=== PATIENT | female | born 1965 | race African-American/Black ===

== ENCOUNTER 2017-07-19 21:37 | Emergency (ER) | payer BC, MEDICARE ==
[2017-07-19 22:15] LABS: #Basophils 0.1 thou/uL (0.0-0.2); #Eosinphils 0.3 thou/uL (0.0-0.7); #Lymphocytes 1.6 thou/uL (1.20-3.40); #Monocytes 0.5 thou/uL (0.11-0.59); #Neutrophils 2.9 thou/uL (1.40-6.50); %Basophils 1.8 % (0.0-1.0); %Lymphocytes 29.9 % (21.0-51.0); %Monocytes 9.1 % (0.0-10.0); Hematocrit 38.9 % (36.0-47.0); Mean Platelet Volume 9.4 fL (7.4-10.4); Red Blood Cell (RBC) Count 4.33 mill/uL (4.20-5.40); White Blood Cell (WBC) Count 5.3 thou/uL (4.8-10.8)
[2017-07-19 22:36] LABS: ALT (SGPT) 17 U/L (8-55); AST (SGOT) 17 U/L (5-34); Alkaline Phosphatase 79 U/L (40-150); Anion Gap 12 mmol/L (10-20); BUN (Urea Nitrogen) 11 mg/dL (9.8-20.1); Bilirubin, Total 0.2 mg/dL (0.2-1.2); Calc. Creatinine Clearance 0 mL/min (70-130); Carbon Dioxide 24 mmol/L (22-29); Chloride 108 mmol/L (98-107); Estimated GFR-MDRD 80; Globulin 3.4 g/dL (2.4-3.5); Protein, Total 7.2 g/dL (6.0-8.3)
[2017-07-19] MEDS ORDERED: Morphine 4 MG/ML VIAL ONE (23:34)
[2017-07-19 23:51] LABS: Troponin I Less than 0.010 ng/mL (< 0.028)
--- NOTE | 2017-07-20 00:03 | RAD ---
CHEST ONE VIEW: History: Dyspnea. Seizure. Comparison: 2015 FINDINGS: Lungs are without focal airspace consolidation, pneumothorax or effusion. Mild reversed S-shaped scol iosis of the thoracic spine. ACDF hardware is present. IMPRESSION: No acute intrathoracic abnormality. POS: [facility]
--- NOTE | 2017-07-20 11:46 | CT ---
PRELIMINARY REPORT/[facility]/EMERGENCY AFTER HOURS PROCEDURE: EXAM: CT Cervical Spine Without Intravenous Contrast CLINICAL HISTORY: 52 years old, female; Pain; Neck pain; Prior surgery; Surgery type: Spinal surgery 2017 - reports "me afia disks in my neck area. ". ; Patient HX: 52 y/o female, HX seizures, brain tumor, presents for hea d injury yesterday. Pt reports she was at [employer] and apparently lost consciousness. She fell back and hit the ground on the back of her head. She C/O continued head and neck pain. She has HX of multiple disk replacements at the cervical level. Pt reports she takes seizure medications, but she thinks sh abdelrahman does not remember to take them. She took her depakote today. No nausea or vomiting TECHNIQUE: Axial computed tomography images of the cervical spine without intravenous contrast. All CT scans at this facility use one or more dose reduction techniques, viz.: automated exposure control; ma/kV adju stment per patient size (including targeted exams where dose is matched to indication; i.e. head); or iterative reconstruction technique. COMPARISON: No relevant prior studies available. FINDINGS: Vertebrae: Extensive prior anterior cervical fusion from C3-C7. Surgical hardware is grossly intact N o acute fracture. Discs/spinal canal/neural foramina: No acute findings. Central canal and foraminal stenosis most pron ounced at C4-C5. Soft tissues: Question left hemithyroidectomy Lung apices: Unremarkable as visualized. IMPRESSION: No definite acute cervical fracture observed Thank you for allowing us to participate in the care of your patient. Dictated and Authenticated by: Lance Mtz MD 07/20/2017 12:53 AM Central Time ([place] & [place]) FINAL REPORT EMERGENCY AFTER HOURS CT SCAN CERVICAL SPINE: Date: 07/20/17 HISTORY: Patient reportedly loss consciousness at [employer] and fell back and hit head on ground. Patient continu es to complain of head and neck pain. History of prior neck surgery. TECHNIQUE: Contiguous axial CT images are obtained through the cervical spine from the skull base to the level o f the T2 vertebral body. COMPARISON: 01/29/15. FINDINGS/IMPRESSION: 1. Interval postsurgical change related to anterior cervical fusion with anterior plate and screws t ransfixing the C3 through C7 levels. Intradiscal prostheses are present at these levels. No hardware complication is present. 2. No evidence of a fracture or subluxation involving the cervical spine. 3. Mild scattered degenerative changes. 4. Nonvisualization left lobe of thyroid gland, which may be postsurgical in origin. Findings are in agreement with the preliminary report by Nohemi. POS: [facility]
--- NOTE | 2017-07-20 11:48 | CT ---
PRELIMINARY REPORT/[facility]/EMERGENCY AFTER HOURS PROCEDURE: EXAM: CT Thoracic Spine Without Intravenous Contrast CLINICAL HISTORY: 52 years old, female; Pain; Pain in thoracic spine; Patient HX: 52 y/o female, HX seizures, brain akosua or, presents for head injury yesterday. Pt reports she was at [employer] and apparently lost consciousnes s. She fell back and hit the ground on the back of her head. She C/O continued head and neck pain. She has HX of multiple disk replacements at the cervical level. Pt reports she takes s eizure medications, but she thinks she does not remember to take them. She took her depakote today. N o nausea or vomiting TECHNIQUE: Axial computed tomography images of the thoracic spine without intravenous contrast. All CT scans at this facility use one or more dose reduction techniques, viz.: automated exposure control; ma/kV adju stment per patient size (including targeted exams where dose is matched to indication; i.e. head); or iterative reconstruction technique. COMPARISON: No relevant prior studies available. FINDINGS: Vertebrae: Grossly maintained. No acute fracture. Discs/spinal canal/neural foramina: No acute findings. No spinal canal stenosis. Soft tissues: Unremarkable. IMPRESSION: No acute thoracic fracture Thank you for allowing us to participate in the care of your patient. Dictated and Authenticated by: Lance Mtz MD 07/20/2017 12:46 AM Central Time ([place] & [place]) FINAL REPORT: CT THORACIC SPINE: Multiple axial tomograms were obtained through the thoracic spine with multiplanar reconstruction. Thoracic vertebrae maintain height and alignment. No evidence of acute fracture identified. I am in a greement with the preliminary report. POS: [facility]
--- NOTE | 2017-07-20 11:51 | CT ---
PRELIMINARY REPORT/[facility]/EMERGENCY AFTER HOURS PROCEDURE: EXAM: CT Head Without Intravenous Contrast CLINICAL HISTORY: 52 years old, female; Pain; Patient HX: 52 y/o female, HX seizures, brain tumor[facility] Pt reports she was at [employer] and apparently lost consciousness. She fell back and hit the ground on the back of her head. She C/O continued head and neck pain. She has HX of multiple dis k replacements at the cervical level. Pt reports she takes seizure medications, but she thinks she do es not remember to take them. She took her depakote today. No nausea or vomiting TECHNIQUE: Axial computed tomography images of the head/brain without intravenous contrast. All CT scans at this facility use one or more dose reduction techniques, viz.: automated exposure control; ma/kV adjustme nt per patient size (including targeted exams where dose is matched to indication; i.e. head); or ite rative reconstruction technique. COMPARISON: No relevant prior studies available. FINDINGS: Brain: 4.1 x 1.3 cm dural ossification in the midline versus meningioma No hemorrhage. No significant white matter disease. No edema. Ventricles: Unremarkable. No ventriculomegaly. Bones/joints: Unremarkable. No acute fracture. Soft tissues: Unremarkable. Sinuses: Unremarkable as visualized. No acute sinusitis. Mastoid air cells: Unremarkable as visualized. No mastoid effusion. IMPRESSION: Prominent dural ossification versus meningioma as noted No intracranial hemorrhage.Please see discussion above. Thank you for allowing us to participate in the care of your patient. Dictated and Authenticated by: Lance Mtz MD 07/20/2017 12:47 AM Central Time ([place] & [place]) FINAL REPORT EMERGENCY AFTER HOURS NONCONTRAST CT HEAD: Date: 07/20/17 HISTORY: Seizure, history of brain tumor. Patient presents for head injury 1 day ago. Patient reportedly lost consciousness and fell and hit back of head on ground. Continues to have head and neck pain. COMPARISON: 01/29/15. IMPRESSION: 1. No acute intracranial abnormality is demonstrated. 2. Stable prominent dural based calcified plaques versus densely calcified meningiomas. Findings are in agreement with the preliminary report by Nohemi. POS: [facility]
--- NOTE | 2017-08-24 12:39 | EKG ---
Test Reason : Blood Pressure : / mmHG Vent. Rate : 078 BPM Atrial Rate : 078 BPM P-R Int : 150 ms QRS Dur : 092 ms QT Int : 390 ms P-R-T Axes : 056 -14 018 degrees QTc Int : 444 ms Normal sinus rhythm Possible Left atrial enlargement Incomplete right bundle branch block Left ventricular hypertrophy Nonspecific T wave abnormality Abnormal ECG Confirmed by LAYO ZARATE ([id number]), pictures editor TITUS BROOKS ([id number]) on 08/24/2017 12:39:01 PM Referred By: Confirmed By:LAYO ZARATE
== END 2017-07-20 01:09 | disposition home or self-care (01) ==
LOC: ERS 21:37
DX: S06.9X9A Unspecified intracranial injury with loss of consciousness of unspecified duration, initial encounter (principal); R56.9 Unspecified convulsions; I10 Essential (primary) hypertension; F31.9 Bipolar disorder, unspecified; F41.9 Anxiety disorder, unspecified; W01.198A Fall on same level from slipping, tripping and stumbling with subsequent striking against other object, initial encounter
CPT/HCPCS: 36415; 70450; 71010; 72125; 72128; 80053; 80164; 82553; 84146; 84484; 85025; 93005; 96372; J2270

== ENCOUNTER 2017-12-08 14:04 | Emergency (ER) | payer MEDICARE ==
[2017-12-08 14:57] LABS: #Eosinphils 0.2 thou/uL (0.0-0.7); #Lymphocytes 1.4 thou/uL (1.20-3.40); #Monocytes 0.4 thou/uL (0.11-0.59); #Neutrophils 2.7 thou/uL (1.40-6.50); %Eosinophils 4.4 % (0.0-10.0); %Lymphocytes 29.8 % (21.0-51.0); %Monocytes 7.9 % (0.0-10.0); %Neutrophils 56.9 % (42.0-75.0); Hemoglobin 13.2 g/dL (12.0-16.0); Mean Corpuscular HGB CONC 33.1 g/dL (32.0-36.0); Mean Corpuscular Hemoglobin 28.9 pg (27.0-31.0); Mean Corpuscular Volume 87.4 fl (81.0-99.0); Mean Platelet Volume 9.8 fL (7.4-10.4); Platelet Count 169 thou/uL (130-400); RBC Distribution Width 12.4 % (11.5-14.5); Red Blood Cell (RBC) Count 4.57 mill/uL (4.20-5.40); White Blood Cell (WBC) Count 4.8 thou/uL (4.8-10.8)
[2017-12-08 15:23] LABS: ALT (SGPT) 18 U/L (8-55); AST (SGOT) 19 U/L (5-34); Albumin 3.9 g/dL (3.5-5.0); Alkaline Phosphatase 87 U/L (40-150); Anion Gap 13 mmol/L (10-20); BUN (Urea Nitrogen) 13 mg/dL (9.8-20.1); Bilirubin, Total Less than 0.2 mg/dL (0.2-1.2); Calc. Creatinine Clearance 0 mL/min (70-130); Carbon Dioxide 21 mmol/L (22-29); Chloride 108 mmol/L (98-107); Estimated GFR-MDRD 84; Globulin 3.1 g/dL (2.4-3.5); Glucose 83 mg/dL (70-105); Potassium 3.7 mmol/L (3.5-5.1); Sodium 138 mmol/L (136-145)
--- NOTE | 2017-12-08 19:30 | RAD ---
FOUR VIEWS OF THE LEFT LEG 12/08/17 INDICATION: Shortness of the left lower extremity with ongoing infection. Patient is also experiencing dizziness. With position change and feels weak. Patient has a stabbing feeling that is sore with chills, weakne ss, fatigue, nausea and loss of appetite. FINDINGS: No acute fracture or subluxation involving the left forearm. Visualized aspects of the left hindfoot appear within normal limits. IMPRESSION: No acute osseous abnormality. POS: [facility]
== END 2017-12-08 18:50 | disposition home or self-care (01) ==
LOC: ERS 14:04
DX: S81.802A Unspecified open wound, left lower leg, initial encounter (principal); R53.81 Other malaise; I10 Essential (primary) hypertension; F31.9 Bipolar disorder, unspecified; F41.9 Anxiety disorder, unspecified; Z79.899 Other long term (current) drug therapy; W22.8XXA Striking against or struck by other objects, initial encounter
CPT/HCPCS: 36415; 80053; 85025; 85652; 86140; 87040; 93005

== ENCOUNTER 2018-11-19 14:49 | Emergency (ER) | payer MEDICARE, OTHER ==
[2018-11-19] MEDS ORDERED: Adacel (T-DAP) 0.5 ML SYRINGE ONE (15:13)
--- NOTE | 2018-11-19 15:43 | RAD ---
LEFT ANKLE THREE VIEWS: 11/19/18 HISTORY: [facility] There appears to be a soft tissue injury adjacent to the distal fibula. There is no radiopaque foreig n bodies or underlying fracture. IMPRESSION: No evidence of fracture. POS: [facility]
== END 2018-11-19 16:40 | disposition home or self-care (01) ==
LOC: ERS 14:49
DX: S91.012A Laceration without foreign body, left ankle, initial encounter (principal); I10 Essential (primary) hypertension; F31.9 Bipolar disorder, unspecified; F41.9 Anxiety disorder, unspecified; Z79.899 Other long term (current) drug therapy; W26.8XXA Contact with other sharp object(s), not elsewhere classified, initial encounter
CPT/HCPCS: 90471; 90715

== ENCOUNTER 2019-02-16 21:25 | Emergency (ER) | payer MEDICARE ==
--- NOTE | 2019-02-16 21:51 | RAD ---
Chest one view HISTORY: Chest pain. COMPARISON: 07/19/2017. FINDINGS:: Cardiac silhouette is magnified by projection. Pulmonary vasculature is unremarkable. Medi astinum is midline. Postoperative changes of the cervical spine. No lobar consolidation or evidence of pneumothorax library monitor leads overlie the chest. IMPRESSION: No active cardiopulmonary abnormalities are demonstrated.
[2019-02-16 21:59] LABS: #Basophils 0.1 thou/uL (0.0-0.2); #Eosinphils 0.3 thou/uL (0.0-0.7); #Lymphocytes 1.8 thou/uL (1.20-3.40); #Monocytes 0.6 thou/uL (0.11-0.59); #Neutrophils 3.1 thou/uL (1.40-6.50); %Basophils 2.2 % (0.0-1.0); %Eosinophils 5.4 % (0.0-10.0); %Lymphocytes 30.6 % (21.0-51.0); %Neutrophils 51.8 % (42.0-75.0); Hemoglobin 12.9 g/dL (12.0-16.0); Mean Corpuscular HGB CONC 32.3 g/dL (32.0-36.0); Mean Corpuscular Volume 86.7 fL (78.0-98.0); Mean Platelet Volume 10.9 fL (7.4-10.4); Platelet Count 179 thou/uL (130-400); White Blood Cell (WBC) Count 5.9 thou/uL (4.8-10.8)
[2019-02-16] MEDS ORDERED: Morphine 4 MG/ML VIAL ONE (22:03)
[2019-02-16] MEDS ORDERED: Ketorolac Tromethamine 30 MG/ML VIAL ONE (22:03)
[2019-02-16 22:20] LABS: ALT (SGPT) 12 U/L (8-55); AST (SGOT) 14 U/L (5-34); Albumin 4.4 g/dL (3.5-5.0); Alkaline Phosphatase 71 U/L (40-150); Anion Gap 14 mmol/L (10-20); BUN (Urea Nitrogen) 16 mg/dL (9.8-20.1); Bilirubin, Total 0.2 mg/dL (0.2-1.2); Calc. Creatinine Clearance 0 mL/min (70-130); Calcium 9.7 mg/dL (7.8-10.44); Carbon Dioxide 23 mmol/L (22-29); Chloride 104 mmol/L (98-107); Estimated GFR-MDRD 83; Glucose 89 mg/dL (70-105); Lipase 25 U/L (8-78); Potassium 3.8 mmol/L (3.5-5.1); Protein, Total 7.4 g/dL (6.0-8.3); Sodium 137 mmol/L (136-145)
[2019-02-16 22:22] LABS: Bilirubin Small (Negative); Blood, Urine Negative (Negative); Clarity Clear (Clear); Glucose, Urine (Dipstick) Negative (Negative); Leukocyte Negative (Negative); Nitrite Negative (Negative); Protein, Urine (Dipstick) Negative (Neg-Trace); Specific Gravity, Urine 1.028 (1.002-1.036); Urobilinogen 0.2 mg/dL (0.2-1.0); pH, Urine 5.5 (5.0-9.0)
--- NOTE | 2019-02-16 23:01 | CT ---
CT arteriogram chest with IV contrast and 3-D imaging HISTORY: Chest pain and elevated d-dimer. FINDINGS: There is good contrast opacification of the pulmonary arteries and thoracic aorta with bovi ne origin of the great vessels at the aortic arch. Lungs are well-inflated. A 0.6 cm groundglass nodule within the superior segment right lower lobe is stable compared to 01/29/2015 study. Reactive ap pearing lymph nodes are scattered throughout the mediastinum, measuring up to 1.4 cm at the right hilum. No pleural fluid or pneumothorax. IMPRESSION: No CT evidence of pulmonary embolus.
--- NOTE | 2019-02-16 23:03 | CT ---
CT abdomen and pelvis with IV contrast HISTORY: Abdominal pain. Left flank pain. Dysuria. FINDINGS: Lung bases are clear. The liver, spleen, kidneys, adrenal glands, and pancreas have a denys l CT appearance. Urinary bladder is decompressed. No evidence of bowel obstruction. Appendix is not inflamed. IMPRESSION: No significant abnormalities are demonstrated.
== END 2019-02-16 23:33 | disposition home or self-care (01) ==
LOC: ERS 21:25
DX: R07.89 Other chest pain (principal); R09.1 Pleurisy; I10 Essential (primary) hypertension; F31.9 Bipolar disorder, unspecified; F41.9 Anxiety disorder, unspecified; Z79.899 Other long term (current) drug therapy
CPT/HCPCS: 71045; 71275; 74177; 80053; 81003; 83690; 84484; 85025; 85379; 93005; 96374; 96375; J1885; J2270

== ENCOUNTER 2019-03-13 08:15 | Outpatient (CLI) | payer MEDICARE ==
--- NOTE | 2019-03-13 09:30 | CT ---
Chest CT with IV contrast: 03/13/2019 COMPARISON: 02/16/2019 and 01/29/2015 HISTORY: Lymphadenopathy noted on prior imaging TECHNIQUE: Axial CT imaging obtained at 3 mm intervals through the chest with IV contrast. Coronal re formatted imaging obtained. FINDINGS: The left lobe of the thyroid gland is not visualized, presumably surgically absent. There is no axillary lymphadenopathy noted. There is small volume superior mediastinal fluid adjacent to the aorta, stable. There is a mildly prominent lymph node posterior to the brachiocephalic vein, stable. There is an enl arged prevascular lymph node measuring 1.1 cm in short axis dimension, stable. Bilateral stable hilar adenopathy is noted, measuring up to 1.6 cm in short axis dimension on the lef t and up to approximately 1.1 cm short axis dimension on right. Stable subcarinal adenopathy measures 1.2 cm in short axis dimension. Limited assessment of the imaged upper abdomen demonstrates no acute findings. No upper abdominal miguel nopathy is apparent. The spleen is normal in size. There is no pneumothorax seen on either side. There is an incompletely imaged postoperative hardware associated with the cervical spine. There is no pulmonary parenchymal mass lesion or nodule noted within the right upper lobe. There is m ild linear density in right middle lobe suggesting scar and/or volume loss. There is a pulmonary nodule within the right lower lobe on axial image 46 measuring up approximately 7 mm in AP dimension, not significantly changed. Question an additional tiny nodule within the right lower lobe on axial image 45 measuring 3 mm. There is mild increased linear interstitial density in the perihilar regions involving bilateral lowe r lobes which could be inflammatory or chronic in nature. No discrete pulmonary parenchymal mass lesion or nodule is seen within the left lung. Review of the osseous structures demonstrates no worrisome lytic or blastic bone lesion. There is a prior study performed 01/29/2015. The lymphadenopathy in the chest is probably stable when c ompared to that examination. The pulmonary nodule within the right lower lobe appears stable as well. IMPRESSION: Lymphadenopathy and right lower lobe pulmonary nodule, not significantly changed when com pared to 01/29/2015.
== END 2019-03-13 08:16 | disposition home or self-care (01) ==
LOC: BICCT 08:15
PROVIDERS: ATTEND Internal Medicine
DX: R59.0 Localized enlarged lymph nodes (principal); R91.1 Solitary pulmonary nodule
CPT/HCPCS: 71260

== ENCOUNTER 2019-04-10 15:34 | Emergency (ER) | payer MEDICARE ==
[2019-04-10 16:44] LABS: #Basophils 0.1 thou/uL (0.0-0.2); #Eosinphils 0.2 thou/uL (0.0-0.7); #Lymphocytes 1.2 thou/uL (1.20-3.40); #Monocytes 0.3 thou/uL (0.11-0.59); #Neutrophils 2.3 thou/uL (1.40-6.50); %Basophils 2.3 % (0.0-1.0); %Eosinophils 5.8 % (0.0-10.0); %Monocytes 8.3 % (0.0-10.0); %Neutrophils 54.6 % (42.0-75.0); Hemoglobin 12.5 g/dL (12.0-16.0); Mean Corpuscular HGB CONC 31.9 g/dL (32.0-36.0); Mean Corpuscular Hemoglobin 27.5 pg (27.0-31.0); Mean Corpuscular Volume 86.3 fL (78.0-98.0); Mean Platelet Volume 10.1 fL (7.4-10.4); Platelet Count 176 thou/uL (130-400); RBC Distribution Width 12.9 % (11.5-14.5); Red Blood Cell (RBC) Count 4.56 mill/uL (4.20-5.40); White Blood Cell (WBC) Count 4.2 thou/uL (4.8-10.8)
[2019-04-10 17:06] LABS: ALT (SGPT) 14 U/L (8-55); AST (SGOT) 15 U/L (5-34); Albumin 4.2 g/dL (3.5-5.0); Alkaline Phosphatase 73 U/L (40-150); Anion Gap 9 mmol/L (10-20); BUN (Urea Nitrogen) 15 mg/dL (9.8-20.1); Bilirubin, Total 0.2 mg/dL (0.2-1.2); Calc. Creatinine Clearance 0 mL/min (70-130); Calcium 9.2 mg/dL (7.8-10.44); Carbon Dioxide 29 mmol/L (22-29); Chloride 107 mmol/L (98-107); Estimated GFR-MDRD 74; Globulin 2.8 g/dL (2.4-3.5); Glucose 72 mg/dL (70-105); Potassium 3.6 mmol/L (3.5-5.1); Sodium 141 mmol/L (136-145)
[2019-04-10] MEDS ORDERED: Metoclopramide HCl 10 MG/2 ML VIAL ONE (17:44)
[2019-04-10] MEDS ORDERED: diphenhydrAMINE 50 MG/ML VIAL ONE (17:44)
[2019-04-10] MEDS ORDERED: Methocarbamol 1 GM in Sodium Chloride 0.9% 250 ML 250 ML IVPB SCH (19:00)
[2019-04-10 19:10] LABS: Bilirubin Negative (Negative); Blood, Urine Negative (Negative); Clarity Clear (Clear); Glucose, Urine (Dipstick) Normal (Negative); Leukocyte Negative Leu/uL (Negative); Nitrite Negative (Negative); Protein, Urine (Dipstick) Negative (Neg-Trace); Urobilinogen Normal mg/dL (Less than 2)
--- NOTE | 2019-04-10 19:11 | CT ---
CT Brain WO Con: 04/10/2019 6:43 PM CLINICAL HISTORY: Right-sided headaches with seizures. IMAGING TECHNIQUE: Multiple CT images were obtained of the brain without IV contrast. COMPARISON: CT the brain without contrast dated July 12, 2017 FINDINGS: Infarct: No acute infarct evident. Hemorrhage: None.. Hydrocephalus: None.. Basal cisterns: Normal.. Cerebral parenchyma: Normal.. Midline shift: None.. Cerebellum: Normal. Brainstem: Normal. OTHER: Calvarium: There are prominent dural calcifications versus extra-axial meningiomas involving the falx and overlying the convexities of both frontal lobes. This is stable to the prior exam.. Visualized Paranasal sinuses: Clear.. Extracranial soft tissues:Normal. IMPRESSION: No acute intracranial abnormality.
[2019-04-10] MEDS ORDERED: Ketorolac Tromethamine 30 MG/ML VIAL ONE (19:47)
== END 2019-04-10 20:54 | disposition home or self-care (01) ==
LOC: ERS 15:34
DX: R51 Headache (principal); I10 Essential (primary) hypertension; F31.9 Bipolar disorder, unspecified; F41.0 Panic disorder [episodic paroxysmal anxiety]; Z79.899 Other long term (current) drug therapy
CPT/HCPCS: 36415; 70450; 80053; 81003; 84146; 85025; 96365; 96367; 96375; J1200; J1885; J2765; J2800; J7050

== ENCOUNTER 2019-11-12 20:28 | Emergency (ER) | payer MEDICARE, MEDICAID ==
[~2019-11-12 20:28] MED LIST: Iopamidol 370 76% 100 ML VIAL ONE
[2019-11-12] MEDS ORDERED: Ondansetron PF 4 MG/2 ML Vial ONE (21:04)
[2019-11-12] MEDS ORDERED: Ketorolac Tromethamine 30 MG/ML VIAL ONE (21:04)
[2019-11-12 21:19] LABS: #Eosinphils 0.3 thou/uL (0.0-0.7); #Lymphocytes 1.4 thou/uL (1.20-3.40); #Monocytes 0.5 thou/uL (0.11-0.59); #Neutrophils 2.9 thou/uL (1.40-6.50); %Basophils 0.8 % (0.0-1.0); %Eosinophils 6.1 % (0.0-10.0); %Lymphocytes 27.1 % (21.0-51.0); %Neutrophils 56.9 % (42.0-75.0); Hemoglobin 12.3 g/dL (12.0-16.0); Mean Corpuscular HGB CONC 32.8 g/dL (32.0-36.0); Mean Corpuscular Hemoglobin 28.8 pg (27.0-31.0); Mean Corpuscular Volume 87.7 fL (78.0-98.0); Mean Platelet Volume 10.6 fL (7.4-10.4); Platelet Count 181 thou/uL (130-400); RBC Distribution Width 12.6 % (11.5-14.5); Red Blood Cell (RBC) Count 4.26 mill/uL (4.20-5.40)
[2019-11-12 21:27] LABS: Bilirubin Negative (Negative); Blood, Urine Negative (Negative); Clarity Clear (Clear); Glucose, Urine (Dipstick) Normal (Negative); Leukocyte Negative Leu/uL (Negative); Nitrite Negative (Negative); Protein, Urine (Dipstick) Negative (Neg-Trace); Urobilinogen Normal mg/dL (Less than 2)
[2019-11-12 21:38] LABS: ALT (SGPT) 9 U/L (8-55); AST (SGOT) 15 U/L (5-34); Alkaline Phosphatase 75 U/L (40-110); Anion Gap 12 mmol/L (10-20); BUN (Urea Nitrogen) 14 mg/dL (9.8-20.1); Bilirubin, Total 0.2 mg/dL (0.2-1.2); Calc. Creatinine Clearance 0 mL/min (70-130); Calcium 9.9 mg/dL (7.8-10.44); Carbon Dioxide 24 mmol/L (22-29); Chloride 105 mmol/L (98-107); Estimated GFR-MDRD 75; Globulin 2.8 g/dL (2.4-3.5); Glucose 92 mg/dL (70-105); Lipase 19 U/L (8-78); Potassium 3.5 mmol/L (3.5-5.1); Protein, Total 6.8 g/dL (6.0-8.3); Sodium 137 mmol/L (136-145)
--- NOTE | 2019-11-12 21:41 | CT ---
CT Abdomen Pelvis W Con: 11/12/2019 8:55 PM CLINICAL INFORMATION: Abdominal pain for 2 weeks COMPARISON: 02/16/2019 TECHNIQUE: Multiple contiguous axial images were obtained and a CT of the abdomen and pelvis with IV contrast. C oronal and sagittal reformats were performed. FINDINGS: Lower Chest: within normal limits. Abdomen: Liver: within normal limits. Bile Ducts: Normal caliber. Gallbladder: No calcified gallstones. Normal caliber wall. Pancreas: within normal limits. Spleen: within normal limits. Adrenals: within normal limits. Kidneys: within normal limits. Pelvis: Reproductive Organs: Status post hysterectomy. Ureters: within normal limits. Bladder: within normal limits. Peritoneum: No ascites or free air, no fluid collection. Bowel: Normal caliber. Normal appendix. The cecum and appendix are low in the pelvis. Mesentery and Retroperitoneum: No enlarged mesenteric or retroperitoneal lymph nodes. Vessels: Normal. Abdominal Wall: within normal limits. Bones: Within normal limits IMPRESSION: No evidence of acute intraabdominal or pelvic abnormality.
== END 2019-11-12 22:35 | disposition home or self-care (01) ==
LOC: ERS 20:28
DX: R10.84 Generalized abdominal pain (principal); I10 Essential (primary) hypertension; F31.9 Bipolar disorder, unspecified; F41.9 Anxiety disorder, unspecified; Z79.899 Other long term (current) drug therapy
CPT/HCPCS: 36415; 74177; 80053; 81003; 83690; 85025; 96361; 96374; 96375; J1885; J2405; Q9967

== ENCOUNTER 2020-06-20 11:48 | Outpatient (CLI) | payer MEDICARE, MEDICAID ==
--- NOTE | 2020-06-20 13:20 | MMO ---
Bilateral MAMMO Bilat Screen [facility]. CLINICAL HISTORY: Patient is 55 years old and is seen for screening. The patient has the following family history of breast cancer: 5 maternal aunts. The patient has no personal history of cancer. VIEWS: The views performed were: bilateral craniocaudal with tomosynthesis and bilateral mediolateral oblique with tomosynthesis. FILMS COMPARED: The present examination has been compared to prior imaging studies performed at [facility] on 01/12/2011 and 10/26/2012, and at [facility] on 10/07/2016 and 01/12/2019. This study has been interpreted with the assistance of computer-aided detection. MAMMOGRAM FINDINGS: The breasts are almost entirely fat. There are no suspicious masses, suspicious calcifications, or new areas of architectural distortion. IMPRESSION: THERE IS NO MAMMOGRAPHIC EVIDENCE OF MALIGNANCY. A ROUTINE FOLLOW-UP MAMMOGRAM IN 1 YEAR IS RECOMMENDED. THE RESULTS OF THIS EXAM WERE SENT TO THE PATIENT. ACR BI-RADS Category 1 - Negative MAMMOGRAPHY NOTE: 1. A negative mammogram report should not delay a biopsy if a dominant of clinically suspicious mass is present. 2. Approximately 10% to 15% of breast cancers are not detected by mammography. 3. Adenosis and dense breasts may obscure an underlying neoplasm. Reported by: SHAHRAM PEARCE MD Electonically Signed: [id number]
== END 2020-06-20 11:49 | disposition home or self-care (01) ==
LOC: BICMAMMO 11:48
PROVIDERS: ATTEND Internal Medicine
DX: Z12.31 Encounter for screening mammogram for malignant neoplasm of breast (principal); Z80.3 Family history of malignant neoplasm of breast
CPT/HCPCS: 77063; 77067

== ENCOUNTER 2020-10-10 10:06 | Emergency (ER) | payer MEDICARE, MEDICAID ==
[2020-10-10] MEDS ORDERED: diphenhydrAMINE 50 MG/ML VIAL ONE (11:00)
[2020-10-10] MEDS ORDERED: Metoclopramide HCl 10 MG/2 ML VIAL ONE (11:02)
[2020-10-10] MEDS ORDERED: Acetaminophen 500 MG TAB ONE (11:02)
[2020-10-10 11:04] LABS: #Eosinphils 0.3 thou/uL (0.0-0.7); #Lymphocytes 1.3 thou/uL (1.20-3.40); #Monocytes 0.2 thou/uL (0.11-0.59); #Neutrophils 1.8 thou/uL (1.40-6.50); %Basophils 0.6 % (0.0-1.0); %Eosinophils 7.4 % (0.0-10.0); %Lymphocytes 35.5 % (21.0-51.0); %Monocytes 6.2 % (0.0-10.0); %Neutrophils 50.3 % (42.0-75.0); Hemoglobin 12.3 g/dL (12.0-16.0); Mean Corpuscular HGB CONC 33.1 g/dL (32.0-36.0); Mean Corpuscular Hemoglobin 29.7 pg (27.0-31.0); Mean Corpuscular Volume 89.6 fL (78.0-98.0); Platelet Count 170 thou/uL (130-400); RBC Distribution Width 12.7 % (11.5-14.5); Red Blood Cell (RBC) Count 4.15 mill/uL (4.20-5.40); White Blood Cell (WBC) Count 3.6 thou/uL (4.8-10.8)
--- NOTE | 2020-10-10 11:11 | CT ---
CT OF BRAIN PERFORMED WITHOUT CONTRAST ENHANCEMENT: Date: 10/10/2020 HISTORY: Patient has seizure activity. Also reports headache and piercing left eye pain. COMPARISON: 04/10/2019 study. FINDINGS: The dense dural based calcifications which were noted on previous study are unchanged when dense calc ification along the falx and dense calcifications over the frontal convexities. The ventricular and c isternal system is within normal limits. No hemorrhage or mass effect. Mastoid air cells are clear. M inimal ethmoid air cell mucosal change. IMPRESSION: No acute intracranial abnormalities. POS: [facility]
[2020-10-10 11:24] LABS: ALT (SGPT) 9 U/L (8-55); AST (SGOT) 16 U/L (5-34); Albumin 3.8 g/dL (3.5-5.0); Alkaline Phosphatase 75 U/L (40-110); Anion Gap 12 mmol/L (10-20); BUN (Urea Nitrogen) 15 mg/dL (9.8-20.1); Bilirubin, Total Less than 0.2 mg/dL (0.2-1.2); Calc. Creatinine Clearance 0 mL/min (70-130); Calcium 8.7 mg/dL (7.8-10.44); Carbon Dioxide 24 mmol/L (22-29); Chloride 108 mmol/L (98-107); Glucose 89 mg/dL (70-105); Protein, Total 6.8 g/dL (6.0-8.3); Sodium 140 mmol/L (136-145)
[2020-10-10 13:00] LABS: Bilirubin Negative (Negative); Blood, Urine Negative (Negative); Clarity Clear (Clear); Glucose, Urine (Dipstick) Normal (Negative); Ketone, Urine Negative (Negative); Leukocyte Negative Leu/uL (Negative); Nitrite Negative (Negative); Protein, Urine (Dipstick) Negative (Neg-Trace); Specific Gravity, Urine 1.021 (1.002-1.036); Urobilinogen Normal mg/dL (Less than 2)
== END 2020-10-10 13:08 | disposition home or self-care (01) ==
LOC: ERS 10:06
DX: G40.909 Epilepsy, unspecified, not intractable, without status epilepticus (principal); I10 Essential (primary) hypertension; Z79.899 Other long term (current) drug therapy
CPT/HCPCS: 70450; 80053; 80164; 80177; 81003; 85025; 94760; 96365; 96375; J1200; J2765

== ENCOUNTER 2021-05-26 13:08 | Emergency (ER) | payer MEDICARE, MEDICAID ==
[2021-05-27 00:41] LABS: SARS-CoV-2 PCR by NAA Not Detected (NotDetected)
== END 2021-05-26 13:57 | disposition home or self-care (01) ==
LOC: ERS 13:08
DX: J34.89 Other specified disorders of nose and nasal sinuses (principal); R68.83 Chills (without fever); I10 Essential (primary) hypertension; Z85.841 Personal history of malignant neoplasm of brain; Z85.118 Personal history of other malignant neoplasm of bronchus and lung; Z20.822 Contact with and (suspected) exposure to COVID-19
CPT/HCPCS: 99283; U0003; U0005

== ENCOUNTER 2021-08-28 11:24 | Outpatient (CLI) | payer MEDICARE, MEDICAID | END 2021-08-28 11:25 | disposition home or self-care (01) | LOC: BICMAMMO 11:24 | PROVIDERS: ATTEND Internal Medicine | DX: Z12.31 Encounter for screening mammogram for malignant neoplasm of breast (principal); Z80.3 Family history of malignant neoplasm of breast | CPT/HCPCS: 77063; 77067 ==

== ENCOUNTER 2021-09-13 08:59 | Emergency (ER) | payer MEDICARE, MEDICAID ==
[2021-09-13] MEDS ORDERED: Acetaminophen 500 MG TAB ONE (10:39)
[2021-09-13 19:53] LABS: SARS-CoV-2 PCR by NAA DETECTED (NotDetected)
== END 2021-09-13 10:43 | disposition home or self-care (01) ==
LOC: ERS 08:59
DX: U07.1 COVID-19 (principal); J45.901 Unspecified asthma with (acute) exacerbation; I10 Essential (primary) hypertension; Z79.899 Other long term (current) drug therapy
CPT/HCPCS: 71045; 99285; U0003; U0005

== ENCOUNTER 2021-09-18 19:19 | Emergency (ER) | payer MEDICARE, MEDICAID ==
[2021-09-18 20:12] LABS: #Eosinphils 0.1 thou/uL (0.0-0.7); #Lymphocytes 1.4 thou/uL (1.20-3.40); #Monocytes 0.4 thou/uL (0.11-0.59); #Neutrophils 3.8 thou/uL (1.40-6.50); %Basophils 0.2 % (0.0-1.0); %Eosinophils 1.4 % (0.0-10.0); %Lymphocytes 24.9 % (21.0-51.0); %Monocytes 6.6 % (0.0-10.0); %Neutrophils 66.9 % (42.0-75.0); Hemoglobin 14.8 g/dL (12.0-16.0); Mean Corpuscular HGB CONC 32.4 g/dL (32.0-36.0); Mean Corpuscular Hemoglobin 28.6 pg (27.0-31.0); Mean Corpuscular Volume 88.1 fL (78.0-98.0); Mean Platelet Volume 9.1 fL (7.4-10.4); Platelet Count 193 thou/uL (130-400); RBC Distribution Width 12.9 % (11.5-14.5); Red Blood Cell (RBC) Count 5.19 mill/uL (4.20-5.40); White Blood Cell (WBC) Count 5.6 thou/uL (4.8-10.8)
[2021-09-18 20:41] LABS: ALT (SGPT) 29 U/L (8-55); AST (SGOT) 20 U/L (5-34); Alkaline Phosphatase 67 U/L (40-110); Anion Gap 13 mmol/L (10-20); BUN (Urea Nitrogen) 24 mg/dL (9.8-20.1); Bilirubin, Total 0.2 mg/dL (0.2-1.2); Calc. Creatinine Clearance 0 mL/min (70-130); Carbon Dioxide 22 mmol/L (22-29); Chloride 105 mmol/L (98-107); Globulin 3.6 g/dL (2.4-3.5); Glucose 95 mg/dL (70-105); Lipase 19 U/L (8-78); Protein, Total 7.6 g/dL (6.0-8.3); Sodium 136 mmol/L (136-145)
[2021-09-18] MEDS ORDERED: Ondansetron PF 4 MG/2 ML Vial ONE (21:36)
[2021-09-18] MEDS ORDERED: Acetaminophen 500 MG TAB ONE (22:53)
== END 2021-09-18 22:57 | disposition home or self-care (01) ==
LOC: ERS 19:19
DX: U07.1 COVID-19 (principal); E86.0 Dehydration; I10 Essential (primary) hypertension
CPT/HCPCS: 36415; 71045; 80053; 83690; 85025; 94760; 96374; J2405

== ENCOUNTER 2022-01-06 07:21 | Day surgery (SDC) | payer OTHER ==
[2022-01-01 14:53] VITALS: BMI 25.2
[2022-01-06 08:08] VITALS: BP 101/77; TEMP 97.9
== END 2022-01-06 10:35 | disposition home or self-care (01) ==
LOC: RAD 07:21
PROVIDERS: ATTEND Neurological Surgery
PROC: B01B1ZZ Fluoroscopy of Spinal Cord using Low Osmolar Contrast (ICD-10-PCS; principal; 2022-01-06)
DX: M50.321 Other cervical disc degeneration at C4-C5 level (principal); M48.02 Spinal stenosis, cervical region; M79.601 Pain in right arm; M19.90 Unspecified osteoarthritis, unspecified site; J45.909 Unspecified asthma, uncomplicated; E78.00 Pure hypercholesterolemia, unspecified; G40.909 Epilepsy, unspecified, not intractable, without status epilepticus; G43.909 Migraine, unspecified, not intractable, without status migrainosus; I10 Essential (primary) hypertension; E89.0 Postprocedural hypothyroidism; Z79.899 Other long term (current) drug therapy; Z88.5 Allergy status to narcotic agent; Z88.8 Allergy status to other drugs, medicaments and biological substances; Z91.040 Latex allergy status; Z91.048 Other nonmedicinal substance allergy status; Z98.1 Arthrodesis status
CPT/HCPCS: 62302; 72040; 72126

== ENCOUNTER 2022-12-10 10:56 | Outpatient (CLI) | payer OTHER | END 2022-12-10 10:57 | disposition home or self-care (01) | LOC: BICMAMMO 10:56 | PROVIDERS: ATTEND Internal Medicine | DX: Z12.31 Encounter for screening mammogram for malignant neoplasm of breast (principal) | CPT/HCPCS: 77063; 77067 ==

== ENCOUNTER 2023-06-01 10:42 | Emergency (ER) | payer MEDICARE, OTHER ==
[2023-06-01 12:08] LABS: #Basophils 0.1 thou/uL (0.0-0.2); #Eosinphils 0.1 thou/uL (0.0-0.7); #Monocytes 0.3 thou/uL (0.11-0.59); #Neutrophils 2.6 thou/uL (1.40-6.50); %Basophils 1.2 % (0.0-1.0); %Lymphocytes 23.1 % (21.0-51.0); %Monocytes 8.2 % (0.0-10.0); %Neutrophils 65.5 % (42.0-75.0); Hematocrit 38.5 % (36.0-47.0); Hemoglobin 12.1 g/dL (12.0-16.0); Mean Corpuscular HGB CONC 31.4 g/dL (32.0-36.0); Mean Corpuscular Hemoglobin 27.9 pg (27.0-31.0); Mean Corpuscular Volume 88.7 fl (78.0-98.0); Platelet Count 191 10x3/uL (130-400); RBC Distribution Width 13.7 % (11.5-14.5); Red Blood Cell (RBC) Count 4.34 mill/uL (4.20-5.40)
[2023-06-01 12:17] LABS: BHCG - Serum Negative (NEGATIVE); Pregs Control Background? CLEAR/WHITE (CLR/WHITE); Pregs Control Bar Appear? YES (CONTROL BAR)
[2023-06-01 12:33] LABS: ALT (SGPT) 15 U/L (8-55); AST (SGOT) 16 U/L (5-34); Albumin 4.2 g/dL (3.5-5.0); Alkaline Phosphatase 77 U/L (40-110); Anion Gap 11 mmol/L (10-20); BUN (Urea Nitrogen) 14 mg/dL (9.8-20.1); Bilirubin, Total Less than 0.2 mg/dL (0.2-1.2); Calc. Creatinine Clearance 0 mL/min (70-130); Calcium 9.9 mg/dL (7.8-10.44); Carbon Dioxide 25 mmol/L (22-29); Chloride 107 mmol/L (98-107); Estimated GFR 69; Globulin 2.7 g/dL (2.4-3.5); Glucose 90 mg/dL (70-105); Protein, Total 6.9 g/dL (6.0-8.3); Sodium 139 mmol/L (136-145)
[2023-06-01] MEDS ORDERED: Acetaminophen 500 MG TAB ONE (12:52)
[2023-06-01] MEDS ORDERED: Ondansetron ODT 4 MG TAB ONE (12:55)
[2023-06-01 13:09] LABS: Bacteria/HPF None Seen HPF (None Seen); Bilirubin Negative (Negative); Blood, Urine Negative (Negative); CAUTI Indications for Culture Pelvic or flank pain; Clarity Clear (Clear); Glucose, Urine (Dipstick) Normal (Negative); Ketone, Urine Negative (Negative); Leukocyte Negative Leu/uL (Negative); Nitrite Negative (Negative); Protein, Urine (Dipstick) Negative (Neg-Trace); RBC/HPF 0-3 HPF (0-3); Specific Gravity, Urine 1.026 (1.002-1.036); Squamous Epithelial 0-3 HPF (0-3); Urobilinogen Normal mg/dL (Less than 2); WBC/HPF 0-3 HPF (0-3); pH, Urine 6.5 (5.0-9.0)
[2023-06-01 13:14] LABS: Urine Culture Reflex No No
== END 2023-06-01 13:36 | disposition home or self-care (01) ==
LOC: ERS 10:42
DX: M54.50 Low back pain, unspecified (principal); R32 Unspecified urinary incontinence; I10 Essential (primary) hypertension; Z79.899 Other long term (current) drug therapy
CPT/HCPCS: 36415; 70450; 74176; 80053; 81001; 84703; 85025; Q0162

== ENCOUNTER 2023-07-11 17:00 | Outpatient (CLI) | payer MEDICARE, OTHER | END 2023-07-11 17:01 | disposition home or self-care (01) | LOC: SLEEPLAB 17:00 | PROVIDERS: ATTEND Internal Medicine | DX: G47.33 Obstructive sleep apnea (adult) (pediatric) (principal); R53.83 Other fatigue; F31.9 Bipolar disorder, unspecified; F41.9 Anxiety disorder, unspecified; G47.00 Insomnia, unspecified | CPT/HCPCS: 95810 ==